=== PATIENT | male | born 1985 | race Caucasian/White ===

== ENCOUNTER 2016-12-20 02:47 | Emergency (ER) | payer SELFPAY ==
[~2016-12-20] VITALS: Ht 170.2 cm; Wt 84.4 kg
[2016-12-20 04:35] VITALS: BP 112/74
== END 2016-12-20 04:35 | disposition home or self-care (01) ==
LOC: ED 02:47
DX: Z20.828 Contact with and (suspected) exposure to other viral communicable diseases (principal)